=== PATIENT | male | born 1945 ===

== ENCOUNTER 2018-09-12 09:13 | Outpatient (CLI) | payer OTHER, SELFPAY ==
--- NOTE | 2018-09-12 10:44 | HP ---
HISTORY OF PRESENT ILLNESS: Mr. Harry Merida is a very pleasant 73-year-old gentleman, accompanied by his , who presents to the Wound Center for evaluation of a sacral wound. The patient was discharged from long term at [facility] on 09/09/2018. The patient's states that Mr. Merida is utilizing a wheelchair because of contractures for which he is to receive Botox on 10/04/2018, by Dr. Lan. The patient's states that the sacral wound developed in 05/2018 during a stay at the [facility] in [place], [place]. The patient's states that Mr. Merida was in the ICU for 8 weeks. From there, the patient was transferred to the [facility] in [place], [place], and from there to [facility] at the [place]. From rehab, the patient was transferred to long term. The patient's states that Mr. Merida was admitted to the [facility] for severe pneumonia, ARDS, and diastolic dysfunction. PAST MEDICAL HISTORY: 1. COPD. 2. Hypertension. 3. Diabetes mellitus. 4. History of CVA in 2011. 5. Osteoarthritis. 6. Hypothyroidism. 7. Renal insufficiency. PAST SURGICAL HISTORY: 1. Bilateral carpal tunnel surgery in staged procedures. 2. Cataract surgery, staged procedures. 3. Gastric bypass. 4. Removal of basal cell carcinoma from face. MEDICATIONS: The patient does not have a list of his medications with him today. ALLERGIES: BETA BLOCKERS. SOCIAL HISTORY: Significant for tobacco use of 3 packs of cigarettes per day for 20 years. The patient admits to only the rare consumption of alcohol. FAMILY HISTORY: Family history is negative for diabetes mellitus. Family history significant for coronary artery disease. The patient's father was diagnosed with coronary artery disease. PHYSICAL EXAMINATION: VITAL SIGNS: Temperature 98.0, pulse 73, respirations 20, blood pressure 127/58. Accu-Chek 90. GENERAL: A 73-year-old gentleman lying on table in examination room, in no acute distress. HEENT: Normocephalic and atraumatic. NECK: No nuchal rigidity. CHEST: Clear to auscultation. CV: Regular rate and rhythm. ABDOMEN: Soft. EXTREMITIES: Contractures present. BACK: A sacral wound is present, which measures approximately 3.0 x 3.9 cm. Granulation tissue is present within the wound margins. Necrotic and nonviable tissue present within the wound margins was debrided with an excisional full-thickness debridement with the use of a curette. No purulent drainage is associated with the wound. No erythema of the skin surrounding the wound is present. No maceration of the skin of the periwound is noted. ASSESSMENT AND PLAN: 1. Sacral wound, as described above. Dressing changes of Medihoney, 4x4s, and Mepilex border will be initiated today. These dressing changes are to be performed on a daily basis after cleansing and irrigation with the assistance of Home Health. No antibiotics will be prescribed today based upon the appearance of the wound. I will see Mr. Merida again in 2 weeks. The patient and his understand and are in agreement with the preceding treatment plan. 2. Chronic obstructive pulmonary disease. 3. Hypertension. 4. Diabetes mellitus. The patient's Accu-Chek in clinic today is 90. The patient and his have been told that for optimal wound healing, the patient's blood glucoses should remain below 150. 5. History of cerebrovascular accident in 2011. 6. Osteoarthritis. 7. Hypothyroidism. 8. Renal insufficiency. Job ID: [id number]
[2018-09-12] MEDS ORDERED: Sodium Chloride 0.9% 15 ML NEB ONE (15:00)
[2018-09-12] MEDS ORDERED: Lidocaine 2% PF 100 mg/5 ml Syringe ONE (15:00)
== END 2018-09-12 09:14 | disposition home or self-care (01) ==
LOC: WCC 09:13
PROVIDERS: ATTEND Family Medicine
DX: S30.91XD Unspecified superficial injury of lower back and pelvis, subsequent encounter (principal)
CPT/HCPCS: 11042; 36416; 99203; A4218; G0463; J2001

== ENCOUNTER 2018-09-21 08:06 | Outpatient (CLI) | payer OTHER ==
--- NOTE | 2018-09-21 09:33 | PRG ---
DATE OF SERVICE: 09/21/2018 HISTORY: Mr. Harry Merida is a very pleasant 73-year-old gentleman, accompanied by his , who presents to the Wound Center for evaluation of a sacral wound. The patient was discharged from prison at [facility] on 09/09/2018. The patient's previously stated that Mr. Merida is utilizing a wheelchair because of contractures, for which he is to receive Botox on 10/04/[address] Lan. The patient's stated that the sacral wound developed in May of 2018 during a stay at the [facility] in [place], [place]. The patient's stated that Mr. Merida was in the ICU for 8 weeks. From there, the patient was transferred to [facility] in [place], [place], and from there to [facility] at the [place]. From rehab, the patient was transferred to prison. The patient's stated that Mr. Merida was admitted to the [facility] for severe pneumonia, ARDS, and diastolic dysfunction. After being seen in the Wound Center, the patient was placed on dressing changes of Medihoney. PHYSICAL EXAMINATION: VITAL SIGNS: Temperature 97.8, pulse 77, blood pressure 138/60. BACK: A sacral wound is present, which measures approximately 2.2 x 2.9 cm. Granulation tissue is present within the wound margins. Necrotic and nonviable tissue present within the wound margins was debrided with an excisional full-thickness debridement with the use of a curette. No purulent drainage is associated with the wound. No erythema of the skin surrounding the wound is present. No maceration of the skin of the periwound is noted. ASSESSMENT AND PLAN: 1. Sacral wound as described above. Dressing changes of Medihoney and Mepilex border will be continued on a daily basis after cleansing and irrigation with the assistance of Home Health. 4x4s will be utilized at the time of dressing changes as needed as a secondary dressing. I will see Mr. Merida again in 2 weeks. 2. Chronic obstructive pulmonary disease. 3. Hypertension. 4. Diabetes mellitus. Accu-Cheks will be obtained at the time of the patient's clinic visits. The patient and his have been reminded that for optimal wound healing, the patient's blood glucoses should remain below 150. 5. History of cerebrovascular accident in 2012. 6. Osteoarthritis. 7. Hypothyroidism. 8. Renal insufficiency. Job ID: [id number]
[2018-09-21] MEDS ORDERED: Lidocaine 2% PF 100 mg/5 ml Syringe ONE (15:53)
[2018-09-21] MEDS ORDERED: Sodium Chloride 0.9% 15 ML NEB ONE (15:53)
== END 2018-09-21 08:07 | disposition home or self-care (01) ==
LOC: WCC 08:06
PROVIDERS: ATTEND Family Medicine
DX: S31.000D Unspecified open wound of lower back and pelvis without penetration into retroperitoneum, subsequent encounter (principal); J44.9 Chronic obstructive pulmonary disease, unspecified; I10 Essential (primary) hypertension; E11.9 Type 2 diabetes mellitus without complications; M19.90 Unspecified osteoarthritis, unspecified site; E03.9 Hypothyroidism, unspecified; N28.9 Disorder of kidney and ureter, unspecified; Z86.73 Personal history of transient ischemic attack (TIA), and cerebral infarction without residual deficits
CPT/HCPCS: 11042; A4218; J2001

== ENCOUNTER 2018-10-05 09:14 | Outpatient (CLI) | payer OTHER ==
--- NOTE | 2018-10-05 09:40 | PRG ---
DATE OF SERVICE: 10/05/2018 HISTORY: Mr. Harry Merida is a very pleasant 73-year-old gentleman, accompanied by his , who presents to the wound center for evaluation of a sacral wound. The patient was discharged from senior care at [facility] on 09/09/2018. The patient's previously stated that Mr. Merida is utilizing a wheelchair because of contractures. The patient's stated that the sacral wound developed in May of 2018 during a stay at the [facility] in [place], [place]. The patient's stated that Mr. Merida was in the ICU for 8 weeks. From there, the patient was transferred to [facility] in [place], [place] and from there to [facility] at the [place]. From rehab, the patient was transferred to senior care. The patient's stated that Mr. Merida was admitted to the [facility] for severe pneumonia, ARDS, and diastolic dysfunction. After being seen in the wound center, the patient was placed on dressing changes of Medihoney. PHYSICAL EXAMINATION: VITAL SIGNS: Temperature 97.6, pulse 73, respirations 16, and blood pressure 155/70. Accu-Chek 172. BACK: A sacral wound is present, which measures approximately 2.6 x 1.2 cm. The dimensions of the wound at the time of the patient's last visit were approximately 2.2 x 2.9 cm. Granulation tissue is present within the wound margins. Necrotic and nonviable tissue present within the wound margins was debrided with an excisional full-thickness debridement with the use of a curette. No purulent drainage is associated with the wound. No erythema of the skin surrounding the wound is present. No maceration of the skin of the periwound is noted. ASSESSMENT AND PLAN: 1. Sacral wound as described above. Dressing changes of Medihoney and Mepilex border will be continued on a daily basis after cleansing and irrigation with the assistance of Home Health. A 4x4s will be utilized at the time of dressing changes as needed as a secondary dressing. I will see the patient again in 3 weeks. 2. Chronic obstructive pulmonary disease. 3. Hypertension. 4. Diabetes mellitus. The patient's Accu-Chek in clinic today is 172. The patient and his have been reminded that for optimal wound healing, the patient's blood glucoses should remain below 150. 5. History of cerebrovascular accident in 2011. 6. Osteoarthritis. 7. Hypothyroidism. 8. Renal insufficiency. Job ID: [id number]
[2018-10-05] MEDS ORDERED: Sodium Chloride 0.9% 15 ML NEB ONE (20:06)
[2018-10-05] MEDS ORDERED: Lidocaine 2% PF 100 mg/5 ml Syringe ONE (20:06)
== END 2018-10-05 09:15 | disposition home or self-care (01) ==
LOC: WCC 09:14
PROVIDERS: ATTEND Family Medicine
DX: T81.89XD Other complications of procedures, not elsewhere classified, subsequent encounter (principal); J44.9 Chronic obstructive pulmonary disease, unspecified; I10 Essential (primary) hypertension; E11.9 Type 2 diabetes mellitus without complications; M19.90 Unspecified osteoarthritis, unspecified site; E03.9 Hypothyroidism, unspecified; N28.9 Disorder of kidney and ureter, unspecified; Z86.73 Personal history of transient ischemic attack (TIA), and cerebral infarction without residual deficits
CPT/HCPCS: 36416; A4218; J2001

== ENCOUNTER 2018-10-27 10:52 | Outpatient (CLI) | payer OTHER, MEDICARE ==
--- NOTE | 2018-10-27 12:47 | PRG ---
DATE OF SERVICE: 10/27/2018 SUBJECTIVE: Mr. Harry Merida is a very pleasant 73-year-old gentleman, accompanied by his who presents to the Wound Center for evaluation of a sacral wound. The patient was discharged from halfway at [facility] on 09/09/2018. The patient's previously stated that Mr. Merida is utilizing a wheelchair because of contractures. The patient's stated that the sacral wound developed in May of 2018 during a stay at the [facility] in [place], [place]. The patient's stated that Mr. Merida was in the ICU for 8 weeks. From there, the patient was transferred to [facility] in [place], [place] and from there to [facility] at the [place]. From rehab, the patient was transferred to halfway. The patient's stated that Mr. Merida was admitted to the [facility] for severe pneumonia, ARDS and diastolic dysfunction. After being seen in the Wound Center, the patient was placed on dressing changes of Medihoney. OBJECTIVE: VITAL SIGNS: Temperature 97.9, pulse 72, respirations 16, blood pressure 155/70, Accu-Chek 140. BACK: A sacral wound is present, which measures approximately 2.3 x 0.5 cm. The dimensions of the wound at the time of the patient's last visit were approximately 2.6 x 1.2 cm. Granulation tissue was present within the wound margins. Necrotic and nonviable tissue present within the wound margins was debrided with an excisional full-thickness debridement with the use of a curette. No purulent drainage is associated with the wound. No erythema of the skin surrounding the wound is present. No maceration of the skin of the periwound is noted. ASSESSMENT AND PLAN: 1. Sacral wound as described above. Dressing changes of Medihoney and Mepilex border will be continued on a daily basis after cleansing and irrigation with the assistance of Home Health. I will see the patient again in 3 weeks. 2. Chronic obstructive pulmonary disease. 3. Hypertension. 4. Diabetes mellitus. The patient's Accu-Chek in clinic today is 140. The patient and his have been reminded that for optimal wound healing, the patient's blood glucoses should remain below 150. 5. History of cerebrovascular accident in 2011. 6. Osteoarthritis. 7. Hypothyroidism. 8. Renal insufficiency. Job ID: [id number]
[2018-10-27] MEDS ORDERED: Sodium Chloride 0.9% 15 ML NEB ONE (19:57)
== END 2018-10-27 10:53 | disposition home or self-care (01) ==
LOC: WCC 10:52
PROVIDERS: ATTEND Family Medicine
DX: S31.000D Unspecified open wound of lower back and pelvis without penetration into retroperitoneum, subsequent encounter (principal); J44.9 Chronic obstructive pulmonary disease, unspecified; I10 Essential (primary) hypertension; E11.9 Type 2 diabetes mellitus without complications; M19.90 Unspecified osteoarthritis, unspecified site; E03.9 Hypothyroidism, unspecified; N28.9 Disorder of kidney and ureter, unspecified; Z86.73 Personal history of transient ischemic attack (TIA), and cerebral infarction without residual deficits
CPT/HCPCS: 11042; A4218

== ENCOUNTER 2018-12-21 10:49 | Outpatient (CLI) | payer OTHER, MEDICARE ==
--- NOTE | 2018-12-21 18:31 | PRG ---
DATE OF SERVICE: 12/21/2018 HISTORY: Mr. Harry Merida is a very pleasant 73-year-old gentleman, accompanied by his , who presents to the Wound Center for evaluation of a sacral wound. The patient was discharged from snf at [facility] on 09/09/2018. The patient's previously stated that Mr. Merida utilizes a wheelchair because of contractures. The patient's stated that the sacral wound developed in May of 2018 during a stay at the [facility] in [place], [place]. The patient's stated that Mr. Merida was in the ICU for 8 weeks. From there, the patient was transferred to [facility] in [place], [place], and from there to [facility] at the [place]. From rehab, the patient was transferred to snf. The patient's stated that Mr. Merida was admitted to the [facility] for severe pneumonia, ARDS, and diastolic dysfunction. After being seen in the Wound Center, the patient was placed on dressing changes of Medihoney. PHYSICAL EXAMINATION: VITAL SIGNS: Temperature 98.0, pulse 62, respirations 18, and blood pressure 174/69. Accu-Chek 232. BACK: The sacral wound has healed completely. ASSESSMENT AND PLAN: 1. Sacral wound as described above. As stated above, the wound has completely healed. The patient and his have been reassured that the wound has healed completely and Mr. Merida will be discharged from clinic today with followup on a p.r.n. basis. 2. Chronic obstructive pulmonary disease. 3. Hypertension. 4. Diabetes mellitus. The patient's Accu-Chek in clinic today is 232. 5. History of cerebrovascular accident in 2011. 6. Osteoarthritis. 7. Hypothyroidism. 8. Renal insufficiency. Job ID: [id number]
== END 2018-12-21 10:50 | disposition home or self-care (01) ==
LOC: WCC 10:49
PROVIDERS: ATTEND Family Medicine
DX: S31.000D Unspecified open wound of lower back and pelvis without penetration into retroperitoneum, subsequent encounter (principal); I10 Essential (primary) hypertension; J44.9 Chronic obstructive pulmonary disease, unspecified; E11.9 Type 2 diabetes mellitus without complications; M19.90 Unspecified osteoarthritis, unspecified site; E03.9 Hypothyroidism, unspecified; N28.9 Disorder of kidney and ureter, unspecified; Z86.73 Personal history of transient ischemic attack (TIA), and cerebral infarction without residual deficits
CPT/HCPCS: 36416; 97602